=== PATIENT | male | born 1980 | race American Indian/Alaskan Native ===

== ENCOUNTER 2018-01-16 12:34 | Emergency (ER) | payer OTHER ==
[2018-01-16 12:43] VITALS: BP 138/86; PULSE 115; RESP 18; TEMP 100; O2SAT 100
--- NOTE | 2018-01-16 13:18 | C.PDOC ---
History Of Present Illness 37 year old male presents to the ED for evaluation of headache (left>right) and generalized malaise. Patient has been in bed for the last two days for a viral syndrome. Patient's last outdoor activity included contact with children in a gymnasium, most of which had various viral syndromes. Patient has not taken any medicine for his symptoms. He denies fever, chills, photophobia, nausea, vomiting. Time Seen by Provider: 01/16/18 13:08 Chief Complaint (Nursing): Syncope History Per: Patient History/Exam Limitations: no limitations Onset/Duration Of Symptoms: Days (2) Current Symptoms Are (Timing): Still Present Additional History Per: Patient Past Medical History Reviewed: Historical Data, Nursing Documentation, Vital Signs Vital Signs: Last Vital Signs Temp 100 F H 01/16/18 12:41 Pulse 115 H 01/16/18 12:41 Resp 18 01/16/18 12:41 BP 138/86 01/16/18 12:41 Pulse Ox 100 01/16/18 12:41 - Medical History PMH: No Chronic Diseases Surgical History: No Surg Hx Family History: States: Unknown Family Hx - Social History Hx Alcohol Use: Yes Hx Substance Use: No - Immunization History Hx Tetanus Toxoid Vaccination: No Hx Influenza Vaccination: No Hx Pneumococcal Vaccination: No Review Of Systems Constitutional: Positive for: Malaise. Negative for: Fever, Chills Eyes: Negative for: Other (photophobia ) Gastrointestinal: Negative for: Nausea, Vomiting Neurological: Positive for: Headache Physical Exam - Physical Exam Appears: Non-toxic, No Acute Distress Skin: Normal Color, Warm, Dry Head: Atraumatic, Normacephalic Eye(s): bilateral: Normal Inspection Ear(s): Bilateral: Normal Nose: Other (nasal passages: moderate to severe erythema, left>right) Oral Mucosa: Moist Throat: Normal, No Erythema, No Exudate Neck: Supple Chest: Symmetrical, No Deformity, No Tenderness Cardiovascular: Rhythm Regular, No Murmur Respiratory: Normal Breath Sounds, No Rales, No Rhonchi, No Wheezing Extremity: Normal ROM, Capillary Refill (less than 2 seconds ) Neurological/Psych: Oriented x3, Normal Speech, Normal Cognition ED Course And Treatment O2 Sat by Pulse Oximetry: 100 (on RA) Pulse Ox Interpretation: Normal Progress Note: Motrin PO and Sudafed PO given. Medical Decision Making Medical Decision Making: viral syndrome sinus headache L no abx required no sig syncope Disposition Doctor Will See Patient In The: Office Counseled Patient/Family Regarding: Studies Performed, Diagnosis - Disposition Referrals: [facility] [Outside] [facility] [Outside] [facility] [Outside] [facility] [Outside] Disposition: HOME/ ROUTINE Disposition Time: 13:18 Condition: GOOD Additional Instructions: Dayquil/Nyquil equivalent pseudafed 30-60 mg every 6 hours as needed for nasal congestion/headache Nasonex/Flonase nasal steroid sprays- 1 spray each nostril every 12 hours as needed Follow-up in our outpatient Clinic as needed. Instructions: Vasovagal Response, Sinus Headache (DC), Viral Syndrome (DC) Forms: [facility] (Estonian) - Clinical Impression Clinical Impression: Viral syndrome, Vasovagal syncope, Sinus headache - Scribe Statement The provider has reviewed the documentation as recorded by the Scribe (Lata Nuno) Provider Attestation: All medical record entries made by the Scribe were at my direction and personally dictated by me. I have reviewed the chart and agree that the record accurately reflects my personal performance of the history, physical exam, medical decision making, and the department course for this patient. I have also personally directed, reviewed, and agree with the discharge instructions and disposition.
== END 2018-01-16 13:28 | disposition home or self-care (01) ==
LOC: MERGE 12:34 → C.ER 12:34
DX: B34.9 Viral infection, unspecified (principal); R55 Syncope and collapse; R51 Headache